=== PATIENT | female | born 1990 | race Caucasian/White ===

== ENCOUNTER → 2020-09-23 | Outpatient (CLI) | payer OTHER | LOC: LAB FS 14:40 | PROVIDERS: ATTEND Obstetrics & Gynecology | DX: N97.0 Female infertility associated with anovulation (principal) | CPT/HCPCS: 36415; 82670; 83002 ==

== ENCOUNTER → 2021-03-18 | Outpatient (CLI) | payer OTHER ==
--- NOTE | 2021-03-18 12:18 | Diagnostic Imaging Report ---
INDICATION: screening. TECHNIQUE: Multiple real-time grayscale images were obtained over the gravid uterus. COMPARISON: There are no prior studies available for comparison. FINDINGS: There is a single live fetus in breech presentation. heart motion was noted and a rate of 150 BPM was recorded. There were no abnormalities identified. However the lower spine could not be optimally visualized due to lie. The growth parameters are fairly uniform. The placenta is posterior fundal and there is no previa. The amniotic fluid volume is within normal limits. The cervix was identified and measures 3.4 cm in length. Biometrical measurements are as follows: Biparietal 4.44 cm, age 19 weeks 3 days. Head circumference 17.21 cm, age 19 weeks 6 days. Abdominal circumference 15.48 cm, age 20 weeks 5 days. Femur length 3.08 cm, age 19 weeks 4 days. Sonographic estimate age: 20 weeks 0 days. Sonographic estimated date of delivery: 08/05/2021. Estimated Weight: 331 gm (+/- 48 gm). LMP percentile: 75%. heart rate: 158 beats per minute. number: 1 of 1. IMPRESSION: 1. There is a single live fetus of approximately 20 weeks gestation +/- 1.5 weeks. The EDC is 08/05/2021. 2. There are no abnormalities identified. However the lower spine was not well visualized. If further evaluation is desired, then a short-term (4-6 week) follow-up exam should be obtained. 3. The growth parameters are fairly uniform. Dictated by: Dictated on workstation # [id number]
== END ==
LOC: RAD FS 07:53
PROVIDERS: ATTEND Obstetrics & Gynecology
DX: Z34.92 Encounter for supervision of normal pregnancy, unspecified, second trimester (principal); Z36.9 Encounter for antenatal screening, unspecified; Z3A.20 20 weeks gestation of pregnancy
CPT/HCPCS: 76805

== ENCOUNTER → 2021-04-22 | Outpatient (CLI) | payer OTHER ==
--- NOTE | 2021-04-22 15:48 | Diagnostic Imaging Report ---
INDICATION: Follow-up anatomy TECHNIQUE: Multiple real-time grayscale images were obtained over the gravid uterus. COMPARISON: 03/18/2021 FINDINGS: Garay IUP measures 24 weeks 4 days in transverse position. The placenta posterior fundal with no abruption or previa. heart rate 150 bpm. head to the maternal left. Anatomical survey is now completed with previous spinal evaluation now satisfactorily visualized. No pathological anatomical finding. Heart rate 150 bpm. IMPRESSION: Nondilated cervix 4 cm in length. spine appeared normal. Completing the previous otherwise unremarkable anatomical survey. No adverse development. Dictated by: Dictated on workstation # [id number]
== END ==
LOC: RAD FS 11:44
PROVIDERS: ATTEND Obstetrics & Gynecology
DX: Z34.92 Encounter for supervision of normal pregnancy, unspecified, second trimester (principal); Z3A.24 24 weeks gestation of pregnancy
CPT/HCPCS: 76816

== ENCOUNTER → 2021-07-19 | Outpatient (CLI) | payer OTHER | LOC: LABNPT 10:42 | PROVIDERS: ATTEND Obstetrics & Gynecology | DX: Z01.89 Encounter for other specified special examinations (principal) | CPT/HCPCS: 82570; 84156 ==

== ENCOUNTER 2021-07-20 09:30 | Inpatient (IN) | payer OTHER ==
[~2021-07-20] VITALS: Ht 152 cm; Wt 60.7 kg
[2021-07-20] VITALS (61 sets, daily range): BP systolic 119–150; BP diastolic 58–90
[2021-07-20] MEDS ORDERED: MINERAL OIL CONCENTRATE 99.9% 15 ML UDC TOP PRN (10:15)
[2021-07-20] MEDS ORDERED: LIDOCAINE/EPI 2% 1:200,00 (XYLOCAINE) 20 ML VIAL INJ PRN (10:15)
[2021-07-20] MEDS: D5 LR IV SOLUTION 1,000 ML IV SCH ×2 (10:47→18:05)
[2021-07-20 10:56] LABS: BASOPHILS % (AUTO) 0 % (0-10); EOSINOPHILS # (AUTO) 0.1 10^3/uL (0.0-0.3); EOSINOPHILS % (AUTO) 1 % (0-10); HEMATOCRIT 29 % (35-52); HEMOGLOBIN 9.6 g/dL (11.5-16.0); LYMPHOCYTES # (AUTO) 1.7 10^3/uL (1.0-4.0); LYMPHOCYTES % (AUTO) 17 % (12-44); MEAN CORPUSCULAR HEMOGLOBIN 33 pg (25-34); MEAN CORPUSCULAR HGB CONC 33 g/dL (32-36); MEAN CORPUSCULAR VOLUME 98 fL (80-99); MEAN PLATELET VOLUME 13.1 fL (9.0-12.2); MONOCYTES # (AUTO) 0.7 10^3/uL (0.0-1.0); MONOCYTES % (AUTO) 7 % (0-12); NEUTROPHILS # (AUTO) 7.4 10^3/uL (1.8-7.8); NEUTROPHILS % (AUTO) 74 % (42-75); PLATELET COUNT 151 10^3/uL (130-400)
--- NOTE | 2021-07-20 11:12 | History & Physical-OB ---
OB - Chief Complaint & HPI Date/Time Date of Admission: Date of Admission: Jul 20, 2021 at 09:31 Date seen by a Provider: Jul 20, 2021 Time Seen by a Provider: 10:30 Chief Complaint/History OB-Reason for Admission/Chief: Induction of Labor ( at 37 2/7 weeks with preeclampsia. Presents for induction of labor) Hx : 2 Hx Para: 0 Expected Date of Delivery: Aug 08, 2021 Gestational Age in Weeks: 37 Gestational Age in Days: 2 Indication for induction: medical complication (preeclampsia) Admission Nurse Assessment Rev: Yes History of Labs A+/- HBsAg - HIV - Hep C - Rub I VDRL NR GBS - PC ratio 0.75 LDH 255 Hgb 10.8 Laboratory Tests Test 07/20/21 10:35 Range/Units White Blood Count 10.0 4.3-11.0 10^3/uL Red Blood Count 2.94 L 3.80-5.11 10^6/uL Hemoglobin 9.6 L 11.5-16.0 g/dL Hematocrit 29 L 35-52 % Mean Corpuscular Volume 98 80-99 fL Mean Corpuscular Hemoglobin 33 25-34 pg Mean Corpuscular Hemoglobin Concent 33 32-36 g/dL Red Cell Distribution Width 13.0 10.0-14.5 % Platelet Count 151 130-400 10^3/uL Mean Platelet Volume 13.1 H 9.0-12.2 fL Immature Granulocyte % (Auto) 2 % Neutrophils (%) (Auto) 74 42-75 % Lymphocytes (%) (Auto) 17 12-44 % Monocytes (%) (Auto) 7 0-12 % Eosinophils (%) (Auto) 1 0-10 % Basophils (%) (Auto) 0 0-10 % Neutrophils # (Auto) 7.4 1.8-7.8 10^3/uL Lymphocytes # (Auto) 1.7 1.0-4.0 10^3/uL Monocytes # (Auto) 0.7 0.0-1.0 10^3/uL Eosinophils # (Auto) 0.1 0.0-0.3 10^3/uL Basophils # (Auto) 0.0 0.0-0.1 10^3/uL Immature Granulocyte # (Auto) 0.2 H 0.0-0.1 10^3/uL Allergies and Home Medications Allergies Coded Allergies: No Known Drug Allergies (Unverified , 07/20/21) Patient Home Medication List Home Medication List Reviewed: Yes OB - History Hx of Present Ultrasounds: Normal mid trimester US Obstetrical Complications: Pre-eclampsia Medical Complications: None Information Induced Hypertension: Yes Maternal Gestational Diabetes: No Hemorrhage: No Obstetrical History Hx : 2 Hx Para: 0 Hx # Term Pregnancies: 0 Hx # Pregnancies: 0 Number of Living Children: 0 Hx Termination: No Hx Total # of Abortions (Spona: 1 Hx Multiple Gestation: No Patient Past Medical History NC Social History/Family History Alcohol Use: Denies Use Recreational Drug Use: No Smoking Cessation: Former smoker Immunizations Tetanus Booster (TDap): Less than 5yrs (05/17/21) Rubella: immune RPR/VDRL: Negative GBS Status: Negative HBsAG: Negative OB - Admission Exam Physical Exam Vitals: 141/79 HEENT: NCAT Heart: Rhythm Normal Lungs: Clear Abdomen: Gravid Extremities: Edema (2+) Reflexes: Hyperreflexia Present Cervical Dilatation: 3cm Effacement: 75% Station: -2 Membranes: Intact Amniotic Fluid: Clear Heart Rate: 140's Accelerations: Accelerations Present Decelerations: No Decelerations Short Term Variability: Present Group Home Variability: Average (6-25) Contractions on Admission: >10 Minutes Apart Labs Laboratory Tests Test 07/20/21 10:35 Range/Units White Blood Count 10.0 4.3-11.0 10^3/uL Red Blood Count 2.94 L 3.80-5.11 10^6/uL Hemoglobin 9.6 L 11.5-16.0 g/dL Hematocrit 29 L 35-52 % Mean Corpuscular Volume 98 80-99 fL Mean Corpuscular Hemoglobin 33 25-34 pg Mean Corpuscular Hemoglobin Concent 33 32-36 g/dL Red Cell Distribution Width 13.0 10.0-14.5 % Platelet Count 151 130-400 10^3/uL Mean Platelet Volume 13.1 H 9.0-12.2 fL Immature Granulocyte % (Auto) 2 % Neutrophils (%) (Auto) 74 42-75 % Lymphocytes (%) (Auto) 17 12-44 % Monocytes (%) (Auto) 7 0-12 % Eosinophils (%) (Auto) 1 0-10 % Basophils (%) (Auto) 0 0-10 % Neutrophils # (Auto) 7.4 1.8-7.8 10^3/uL Lymphocytes # (Auto) 1.7 1.0-4.0 10^3/uL Monocytes # (Auto) 0.7 0.0-1.0 10^3/uL Eosinophils # (Auto) 0.1 0.0-0.3 10^3/uL Basophils # (Auto) 0.0 0.0-0.1 10^3/uL Immature Granulocyte # (Auto) 0.2 H 0.0-0.1 10^3/uL OB - Assessment/Plan/Diagnosis Assessment Assessment: induction of labor, other (preeclampsia without severe features) Admission Dx Plan admission for IOL AROM and augmentation as indicated Magnesium and antihypertensives as indicated Noreen DASH Admission Status: Inpatient Order (span 2 midnights) Reason for Inpatient Admission: inductin of labor Plan Plan: Induction Induction Method: AROM WILFRIDO MITCHELL DO Jul 20, 2021 11:12
[2021-07-20 11:14] LABS: ALBUMIN 2.7 GM/DL (3.2-4.5); BILIRUBIN,TOTAL 0.2 MG/DL (0.1-1.0); CALCIUM 8.3 MG/DL (8.5-10.1); CREATININE SERUM 0.72 MG/DL (0.60-1.30); POTASSIUM 3.6 MMOL/L (3.6-5.0); TOTAL PROTEIN 5.4 GM/DL (6.4-8.2)
[2021-07-20] MEDS ORDERED: OXYTOCIN PRE-MIX DRIP 500 ML IV SCH (11:15)
[2021-07-20] MEDS ORDERED: fentaNYL INJ 100 MCG/2 ML AMP IVP PRN (11:15)
[2021-07-20] MEDS: CATHETER FLUSH 10 ML SYR IV SCH (14:38)
[2021-07-20] MEDS ORDERED: fentaNYL INJ 100 MCG/2 ML AMP ONE ×2 (16:19→17:55)
[2021-07-20] MEDS: fentaNYL INJ 100 MCG/2 ML AMP IVP PRN ×2 (16:24→19:40)
[2021-07-20] MEDS ORDERED: fentaNYL 2 mcg/ml BUPIVA 0.125 100 ML ONE (17:23)
[2021-07-20] MEDS ORDERED: BUPIVACAINE 0.25% 30 ML (SENSORCAINE) VIAL ONE (17:55)
[2021-07-20] MEDS ORDERED: LACTATED RINGERS 1,000 ML IV ONE ×2 (18:00)
[2021-07-20] MEDS ORDERED: EPIDURAL (fentaNYL 2 MCG/ML BUPIVA 0.125%)100 ML BAG EPI PRN (18:00)
[2021-07-20] MEDS ORDERED: ONDANSETRON 4 MG/2 ML (SDV) Z0FRAN IV PRN (18:00)
[2021-07-20] MEDS ORDERED: NALOXONE 0.4 MG/ML 1 ML (NARCAN) VIAL IV PRN (18:00)
[2021-07-20] MEDS ORDERED: fentaNYL INJ 100 MCG/2 ML AMP INJ ONE (18:00)
[2021-07-20] MEDS ORDERED: LIDOCAINE/EPI 2% 1:200,00 (XYLOCAINE) 10 ML VIAL ONE (19:26)
[2021-07-20] MEDS ORDERED: diphenhydrAMINE 50 MG/ML INJ (BENADRYL) ONE (19:36)
[2021-07-20] MEDS ORDERED: diphenhydrAMINE 50 MG/ML INJ (BENADRYL) IM ONE (19:45)
[2021-07-21] VITALS (16 sets, daily range): BP systolic 117–154; BP diastolic 66–89
[2021-07-21] MEDS ORDERED: METOCLOPRAMIDE INJ 10 MG/2 ML (REGLAN) ONE (01:47)
[2021-07-21] MEDS ORDERED: CITRIC ACID/SOB CIT (BICITRA) 30 ML UDC ONE (01:47)
[2021-07-21] MEDS ORDERED: ceFAZolin 2 GM IV Premixed 50 ML ONE (01:48)
[2021-07-21] MEDS ORDERED: FAMOTIDINE 20MG/2ML IV (PEPCID) ONE (01:48)
[2021-07-21] MEDS ORDERED: NS (IVPB) 250 ML ONE (01:49)
[2021-07-21] MEDS ORDERED: AZITHROMYCIN INJECTION 500 MG/5 ML VIAL ONE (01:49)
--- NOTE | 2021-07-21 01:49 | Labor Progress Note ---
Labor Progress Note Labor Progress Note Date Seen by Provider: Jul 21, 2021 Time Seen by Provider: 02:40 Subjective: Karly has been pushing effectively for 2 hours. She has pushed with adequate contractions every 2-3 minutes in different positions. She has made some progre ss, but progress has halted. There is much caput noted. well being has been reassuring, but there has been a high baseline (160s) since admission with large accelerations. there has continued to be variability. However, at this point, there is no progress, no descent and patient is exhausted and asking for "this to be over". Objective: 07/20/21 07/20/21 07/20/21 07/20/21 14:00 14:15 14:30 14:45 Temp 37.3 Pulse 88 109 81 96 Resp 20 20 20 20 B/P (MAP) 130/75 (93) 121/75 (90) 146/64 (91) 136/80 (98) Pulse Ox 97 98 96 98 O2 Delivery Room Air Room Air Room Air Room Air 07/20/21 07/20/21 07/20/21 07/20/21 15:00 15:15 15:30 15:45 Pulse 86 90 86 95 Resp 20 20 20 20 B/P (MAP) 124/66 (85) 137/69 (91) 138/66 (90) 135/63 (87) Pulse Ox 96 97 96 97 O2 Delivery Room Air Room Air Room Air Room Air 07/20/21 07/20/21 07/20/21 07/20/21 16:00 16:15 16:30 16:45 Pulse 108 105 105 95 Resp 20 20 20 20 B/P (MAP) 137/74 (95) 139/73 (95) 148/73 (98) 145/70 (95) Pulse Ox 98 97 97 98 O2 Delivery Room Air Room Air Room Air Room Air 07/20/21 07/20/21 07/20/21 07/20/21 17:00 17:15 17:30 17:45 Temp 37.2 Pulse 100 104 108 113 Resp 20 20 20 20 B/P (MAP) 140/67 (91) 138/68 (91) 138/70 (92) 147/70 (95) Pulse Ox 98 97 97 O2 Delivery Room Air Room Air Room Air Room Air 1207/20/21 07/20/21 07/20/21 18:00 18:03 18:06 18:13 Pulse 105 130 121 111 Resp 20 20 20 20 B/P (MAP) 134/68 (90) 149/88 (108) 149/82 (104) 145/78 (100) Pulse Ox 82 94 95 97 O2 Delivery Room Air Room Air Room Air Room Air 07/20/21 07/20/21 07/20/21 07/20/21 18:20 18:23 18:26 18:40 Pulse 105 105 108 90 Resp 20 20 20 20 B/P (MAP) 148/77 (100) 150/74 (99) 147/77 (100) 140/74 (96) Pulse Ox 95 94 95 96 O2 Delivery Room Air Room Air Room Air Room Air 07/20/21 07/20/21 07/20/21 07/20/21 18:50 19:15 19:30 19:45 Temp 37.5 37.1 Pulse 101 102 103 111 Resp 20 20 20 20 B/P (MAP) 138/71 (93) 139/65 (89) 134/69 (90) 133/65 (87) Pulse Ox 96 97 97 98 O2 Delivery Room Air Room Air Room Air Room Air 07/20/21 07/20/21 07/20/21 07/20/21 20:00 20:15 20:30 20:45 Pulse 99 93 116 Resp 20 20 20 20 B/P (MAP) 137/65 (89) 139/90 (106) Pulse Ox 98 96 98 O2 Delivery Room Air Room Air Room Air 07/20/21 07/20/21 07/20/21 07/20/21 21:00 21:15 21:18 21:21 Pulse 113 111 102 Resp 20 20 20 20 B/P (MAP) 137/67 (90) 132/68 (89) 124/71 (88) Pulse Ox 95 97 97 07/20/21 07/20/21 07/20/21 07/20/21 21:24 21:27 21:30 21:35 Pulse 111 96 93 100 Resp 20 20 20 20 B/P (MAP) 122/68 (86) 129/67 (87) 125/64 (84) 125/62 (83) Pulse Ox 95 96 96 07/20/21 07/20/21 07/20/21 07/20/21 21:40 21:45 22:00 22:15 Pulse 98 99 98 112 Resp 20 20 20 B/P (MAP) 127/61 (83) 128/62 (84) 119/58 (78) 127/58 (81) Pulse Ox 95 97 94 94 07/20/21 07/20/21 07/20/21 07/20/21 22:30 22:45 23:00 23:15 Pulse 129 129 103 105 Resp 20 20 B/P (MAP) 132/62 (85) 132/62 (85) 136/71 (92) 136/66 (89) Pulse Ox 97 97 97 95 07/21/21 00:00 Intake Total 2000 ml Balance 2000 ml at this point, there is no further descent so will proceed with primary section due to deep arrest. risks of the procedure, including, infection, bleeding, injury to fetus, bowel, bladder, ureter and surrounding tissues has been explained to the patient. Proper consent has been obtained. Will give prophylactic antibiotics (Ancef and Azithromycin) and continue Tom hose and SCDs. Laboratory Tests Test 07/20/21 10:35 Range/Units White Blood Count 10.0 4.3-11.0 10^3/uL Red Blood Count 2.94 L 3.80-5.11 10^6/uL Hemoglobin 9.6 L 11.5-16.0 g/dL Hematocrit 29 L 35-52 % Mean Corpuscular Volume 98 80-99 fL Mean Corpuscular Hemoglobin 33 25-34 pg Mean Corpuscular Hemoglobin Concent 33 32-36 g/dL Red Cell Distribution Width 13.0 10.0-14.5 % Platelet Count 151 130-400 10^3/uL Mean Platelet Volume 13.1 H 9.0-12.2 fL Immature Granulocyte % (Auto) 2 % Neutrophils (%) (Auto) 74 42-75 % Lymphocytes (%) (Auto) 17 12-44 % Monocytes (%) (Auto) 7 0-12 % Eosinophils (%) (Auto) 1 0-10 % Basophils (%) (Auto) 0 0-10 % Neutrophils # (Auto) 7.4 1.8-7.8 10^3/uL Lymphocytes # (Auto) 1.7 1.0-4.0 10^3/uL Monocytes # (Auto) 0.7 0.0-1.0 10^3/uL Eosinophils # (Auto) 0.1 0.0-0.3 10^3/uL Basophils # (Auto) 0.0 0.0-0.1 10^3/uL Immature Granulocyte # (Auto) 0.2 H 0.0-0.1 10^3/uL Urine Protein 108 H 6-12 MG/DL Urine Creatinine 58 30-125 MG/DL Urine Protein/Creatinine Ratio 1.86 Sodium Level 139 135-145 MMOL/L Potassium Level 3.6 3.6-5.0 MMOL/L Chloride Level 111 H 98-107 MMOL/L Carbon Dioxide Level 19 L 21-32 MMOL/L Anion Gap 9 5-14 MMOL/L Blood Urea Nitrogen 11 7-18 MG/DL Creatinine 0.72 0.60-1.30 MG/DL Estimat Glomerular Filtration Rate 94 BUN/Creatinine Ratio 15 Glucose Level 110 H 70-105 MG/DL Calcium Level 8.3 L 8.5-10.1 MG/DL Corrected Calcium 9.3 8.5-10.1 MG/DL Total Bilirubin 0.2 0.1-1.0 MG/DL Aspartate Amino Transf (AST/SGOT) 22 5-34 U/L Alanine Aminotransferase (ALT/SGPT) 15 0-55 U/L Alkaline Phosphatase 128 40-136 U/L Lactate Dehydrogenase 233 H 125-220 U/L Total Protein 5.4 L 6.4-8.2 GM/DL Albumin 2.7 L 3.2-4.5 GM/DL Vitals - Labs Vital Signs - I&O Vital Signs Date Time Temp Pulse Resp B/P (MAP) Pulse Ox O2 Delivery O2 Flow Rate FiO2 07/20/21 23:15 105 20 136/66 (89) 95 07/20/21 23:00 103 20 136/71 (92) 97 07/20/21 22:45 129 20 132/62 (85) 97 07/20/21 22:30 129 20 132/62 (85) 97 07/20/21 22:15 112 20 127/58 (81) 94 07/20/21 22:00 98 20 119/58 (78) 94 07/20/21 21:45 99 20 128/62 (84) 97 07/20/21 21:40 98 20 127/61 (83) 95 07/20/21 21:35 100 20 125/62 (83) 96 07/20/21 21:30 93 20 125/64 (84) 96 07/20/21 21:27 96 20 129/67 (87) 07/20/21 21:24 111 20 122/68 (86) 95 07/20/21 21:21 102 20 124/71 (88) 97 07/20/21 21:18 111 20 132/68 (89) 97 07/20/21 21:15 113 20 137/67 (90) 95 07/20/21 21:00 20 07/20/21 20:45 20 07/20/21 20:30 116 20 98 Room Air 07/20/21 20:15 93 20 139/90 (106) 96 Room Air 07/20/21 20:00 99 20 137/65 (89) 98 Room Air 07/20/21 19:45 37.1 111 20 133/65 (87) 98 Room Air 07/20/21 19:30 103 20 134/69 (90) 97 Room Air 07/20/21 19:15 37.5 102 20 139/65 (89) 97 Room Air 07/20/21 18:50 101 20 138/71 (93) 96 Room Air 07/20/21 18:40 90 20 140/74 (96) 96 Room Air 07/20/21 18:26 108 20 147/77 (100) 95 Room Air 07/20/21 18:23 105 20 150/74 (99) 94 Room Air 07/20/21 18:20 105 20 148/77 (100) 95 Room Air 07/20/21 18:13 111 20 145/78 (100) 97 Room Air 07/20/21 18:06 121 20 149/82 (104) 95 Room Air 07/20/21 18:03 130 20 149/88 (108) 94 Room Air 07/20/21 18:00 105 20 134/68 (90) 82 Room Air 07/20/21 17:45 37.2 113 20 147/70 (95) Room Air 07/20/21 17:30 108 20 138/70 (92) 97 Room Air 07/20/21 17:15 104 20 138/68 (91) 97 Room Air 07/20/21 17:00 100 20 140/67 (91) 98 Room Air 07/20/21 16:45 95 20 145/70 (95) 98 Room Air 07/20/21 16:30 105 20 148/73 (98) 97 Room Air 07/20/21 16:15 105 20 139/73 (95) 97 Room Air 07/20/21 16:00 108 20 137/74 (95) 98 Room Air 07/20/21 15:45 95 20 135/63 (87) 97 Room Air 07/20/21 15:30 86 20 138/66 (90) 96 Room Air 07/20/21 15:15 90 20 137/69 (91) 97 Room Air 07/20/21 15:00 86 20 124/66 (85) 96 Room Air 07/20/21 14:45 96 20 136/80 (98) 98 Room Air 07/20/21 14:30 81 20 146/64 (91) 96 Room Air 07/20/21 14:15 37.3 109 20 121/75 (90) 98 Room Air 07/20/21 14:00 88 20 130/75 (93) 97 Room Air 07/20/21 13:45 86 20 136/80 (98) 97 Room Air 07/20/21 13:30 87 20 139/79 (99) 98 Room Air 07/20/21 13:15 87 20 131/70 (90) 97 Room Air 07/20/21 13:00 84 20 137/81 (99) 97 Room Air 07/20/21 12:45 90 20 136/81 (99) 96 Room Air 07/20/21 12:30 82 20 127/72 (90) 98 Room Air 07/20/21 12:15 83 20 125/73 (90) 97 Room Air 07/20/21 12:00 89 20 133/80 (97) 96 Room Air 07/20/21 11:45 92 20 127/71 (89) 96 Room Air 07/20/21 11:30 82 20 134/72 (92) 98 Room Air 07/20/21 11:15 85 20 143/77 (99) 97 Room Air 07/20/21 11:00 82 20 140/79 (99) 97 Room Air 07/20/21 10:45 90 20 141/85 (103) 97 Room Air 07/20/21 10:30 37.4 97 20 147/89 (108) 97 Room Air I & O 07/21/21 07:00 Intake Total 2000 ml Balance 2000 ml Labs Laboratory Tests 07/20/21 10:35: White Blood Count 10.0, Red Blood Count 2.94L, Hemoglobin 9.6L, Hematocrit 29L, Mean Corpuscular Volume 98, Mean Corpuscular Hemoglobin 33, Mean Corpuscular Hemoglobin Concent 33, Red Cell Distribution Width 13.0, Platelet Count 151, Mean Platelet Volume 13.1H, Immature Granulocyte % (Auto) 2, Neutrophils (%) (Auto) 74, Lymphocytes (%) (Auto) 17, Monocytes (%) (Auto) 7, Eosinophils (%) (Auto) 1, Basophils (%) (Auto) 0, Neutrophils # (Auto) 7.4, Lymphocytes # (Auto) 1.7, Monocytes # (Auto) 0.7, Eosinophils # (Auto) 0.1, Basophils # (Auto) 0.0, Immature Granulocyte # (Auto) 0.2H, Urine Protein 108H, Urine Creatinine 58, Urine Protein/Creatinine Ratio 1.86, Sodium Level 139, Potassium Level 3.6, Chloride Level 111H, Carbon Dioxide Level 19L, Anion Gap 9, Blood Urea Nitrogen 11, Creatinine 0.72, Estimat Glomerular Filtration Rate 94, BUN/Creatinine Ratio 15, Glucose Level 110H, Calcium Level 8.3L, Corrected Calcium 9.3, Total Bilirubin 0.2, Aspartate Amino Transf (AST/SGOT) 22, Alanine Aminotransferase (ALT/SGPT) 15, Alkaline Phosphatase 128, Lactate Dehydrogenase 233H, Total Protein 5.4L, Albumin 2.7L WILFRIDO MITCHELL DO Jul 21, 2021 01:49
[2021-07-21] MEDS ORDERED: AZITHROMYCIN INJECTION 500 MG in NS (IVPB) 250 ML IV ONE (02:00)
[2021-07-21] MEDS ORDERED: ceFAZolin 2 GM IV Premixed 50 ML IV ONE (02:00)
[2021-07-21] MEDS ORDERED: morphine INJ 4 MG/ML 1 ML (VIAL/SYRINGE) IV PRN (02:00)
[2021-07-21] MEDS ORDERED: NALOXONE 0.4 MG/ML 1 ML (NARCAN) VIAL IV PRN (02:00)
[2021-07-21] MEDS ORDERED: TETANUS,DIPTH,PERTUSS P/F (BOOSTRIX) 0.5 ML VIAL IM SCH (02:00)
[2021-07-21] MEDS ORDERED: ONDANSETRON 4 MG/2 ML (SDV) Z0FRAN IVP PRN (02:00)
[2021-07-21] MEDS ORDERED: MEASLES,MUMPS,RUBELLA 1 EA INJ SC SCH (02:00)
[2021-07-21] MEDS ORDERED: TERBUTALINE INJ 1 MG/ML (BRETHINE) AMP SC ONE (02:00)
[2021-07-21] MEDS ORDERED: OXYTOCIN PRE-MIX DRIP 500 ML IV SCH (02:00)
[2021-07-21] MEDS ORDERED: fentaNYL INJ 100 MCG/2 ML AMP ONE (02:04)
[2021-07-21] MEDS ORDERED: KETOROLAC 30 MG/ML VIAL ONE (02:57)
[2021-07-21] MEDS: KETOROLAC 30 MG/ML VIAL IV SCH ×3 (03:00→15:12)
[2021-07-21] MEDS ORDERED: OXYTOCIN PRE-MIX DRIP 500 ML IV ONE (03:16)
--- NOTE | 2021-07-21 03:28 | Cesarean Section Operative ---
Procedure Procedure Note Pre-operative Diagnosis: Karly Dubois is a 31 /Para 2 / 0,Gestational Age 37 3/7 weeks, deep pelvic arrest, preeclampsia Post-operative Diagnosis: same Procedure:Primary low transverse section Physician: WILFRIDO MITCHELL Estimated blood loss: 400 mL Disposition: stable Findings: Viable male infant, Apgars9/9, weight 7#4 ounces, intact placenta, 3vc, normal a ppearing uterus, tubes, and ovaries. Indications:Karly Dubois is a 31 /Para 2 / 0,Gestational Age 37 3/7 weeks, deep pelvic arrest, preeclampsia Procedure Details: The patient was seen in pre-op and the procedure was discussed with the patient in full, including the risks, benefits, and alternatives. All questions were answered. The patient was taken to the operating room and a time out was performed, verifying patient and procedure. After spinal anesthesia was placed by our anesthesia colleagues, the patient was placed in the dorsal supine with leftward tilt for uterine displacement.~ Her abdomen was then prepped and draped in the typical sterile fashion. A Pfannenstiel skin incision was made using a scalpel and carried down through the underlying fascia. The fascia was incised in the midline and tented up using Janessa clamps. On both the inferior and superior fascia side the rectus muscle was dissected off bluntly and sharply using Guerra scissors. The peritoneum was identified and entered bluntly in the midline. This was then stretched laterally using manual strength. After entering the abdominal cavity and confirming lack of intraperitoneal adhesions, a large Ismael retractor was placed and the lower uterine segment was visualized. A bladder flap was created with the use of Metzenbaum scissors.~ A scalpel was utilized to make a low transverse uterine incision. Amniotomy was performed with an Allis clamp with return of clear fluid. The infant's head was grasped and brought to the level of the incision. Fundal pressure was applied and infant was delivered without difficulty. Mouth and nares were suctioned with bulb suction. After the umbilical cord was clamped and cut, the was handed off to the pediatric staff. A sample of cord blood was then obtained. The placenta was delivered intact via uterine massage. The uterus was exteriorized and cleared of all clots and debris. The uterine incision was closed using 0 Vicryl in a running locked fashion. A second imbricated layer was placed using 0 Vicryl in a running fashion as well. The uterus was flexed forward and the posterior rectouterine space was inspected and cleared of all clots and debris. Again the hysterotomy site was examined and hemostasis was observed. The bilateral tubes and ovaries appeared normal. The uterus was placed back into the abdominal cavity and abdominal gutters were cleared of all clots and debris. A final check of the uterine incision showed it to be hemostatic. The peritoneum was closed using 3-0 Vicryl in a running fashion. The fascia was closed with 0 Vicryl in a running fashion. The subcutaneous space was hemosta tic, and irrigated. The subcutaneous space was closed with 3-0 Vicryl in several single interrupted stitches. The skin was then closed using 4-0 Monocryl in a running subcuticular fashion. The skin edges were reapproximated together and were hemostatic. A pressure dressing was applied. All sponge, lap and needle counts were correct at the end of the procedure per nursing. Vitals - Labs Vital Signs - I&O Vital Signs Date Time Temp Pulse Resp B/P (MAP) Pulse Ox O2 Delivery O2 Flow Rate FiO2 07/21/21 02:28 20 07/21/21 02:15 123 20 142/80 (100) 07/21/21 02:00 20 07/21/21 01:45 20 07/21/21 01:30 20 07/21/21 01:15 20 07/21/21 01:00 20 07/21/21 00:45 20 07/21/21 00:30 146 20 136/82 (100) 07/21/21 00:15 125 20 134/71 (92) 07/21/21 00:00 120 20 136/79 (98) 07/20/21 23:45 106 20 140/64 (89) 98 07/20/21 23:30 37.6 109 20 138/71 (93) 97 07/20/21 23:15 105 20 136/66 (89) 95 07/20/21 23:00 103 20 136/71 (92) 97 07/20/21 22:45 129 20 132/62 (85) 97 07/20/21 22:30 129 20 132/62 (85) 97 07/20/21 22:15 112 20 127/58 (81) 94 07/20/21 22:00 98 20 119/58 (78) 94 07/20/21 21:45 99 20 128/62 (84) 97 07/20/21 21:40 98 20 127/61 (83) 95 07/20/21 21:35 100 20 125/62 (83) 96 07/20/21 21:30 93 20 125/64 (84) 96 07/20/21 21:27 96 20 129/67 (87) 07/20/21 21:24 111 20 122/68 (86) 95 07/20/21 21:21 102 20 124/71 (88) 97 07/20/21 21:18 111 20 132/68 (89) 97 07/20/21 21:15 113 20 137/67 (90) 95 07/20/21 21:00 20 07/20/21 20:45 20 07/20/21 20:30 116 20 98 Room Air 07/20/21 20:15 93 20 139/90 (106) 96 Room Air 07/20/21 20:00 99 20 137/65 (89) 98 Room Air 07/20/21 19:45 37.1 111 20 133/65 (87) 98 Room Air 07/20/21 19:30 103 20 134/69 (90) 97 Room Air 07/20/21 19:15 37.5 102 20 139/65 (89) 97 Room Air 07/20/21 18:50 101 20 138/71 (93) 96 Room Air 07/20/21 18:40 90 20 140/74 (96) 96 Room Air 07/20/21 18:26 108 20 147/77 (100) 95 Room Air 07/20/21 18:23 105 20 150/74 (99) 94 Room Air 07/20/21 18:20 105 20 148/77 (100) 95 Room Air 07/20/21 18:13 111 20 145/78 (100) 97 Room Air 07/20/21 18:06 121 20 149/82 (104) 95 Room Air 07/20/21 18:03 130 20 149/88 (108) 94 Room Air 07/20/21 18:00 105 20 134/68 (90) 82 Room Air 07/20/21 17:45 37.2 113 20 147/70 (95) Room Air 07/20/21 17:30 108 20 138/70 (92) 97 Room Air 07/20/21 17:15 104 20 138/68 (91) 97 Room Air 07/20/21 17:00 100 20 140/67 (91) 98 Room Air 07/20/21 16:45 95 20 145/70 (95) 98 Room Air 07/20/21 16:30 105 20 148/73 (98) 97 Room Air 07/20/21 16:15 105 20 139/73 (95) 97 Room Air 07/20/21 16:00 108 20 137/74 (95) 98 Room Air 07/20/21 15:45 95 20 135/63 (87) 97 Room Air 07/20/21 15:30 86 20 138/66 (90) 96 Room Air 07/20/21 15:15 90 20 137/69 (91) 97 Room Air 07/20/21 15:00 86 20 124/66 (85) 96 Room Air 07/20/21 14:45 96 20 136/80 (98) 98 Room Air 07/20/21 14:30 81 20 146/64 (91) 96 Room Air 07/20/21 14:15 37.3 109 20 121/75 (90) 98 Room Air 07/20/21 14:00 88 20 130/75 (93) 97 Room Air 07/20/21 13:45 86 20 136/80 (98) 97 Room Air 07/20/21 13:30 87 20 139/79 (99) 98 Room Air 07/20/21 13:15 87 20 131/70 (90) 97 Room Air 07/20/21 13:00 84 20 137/81 (99) 97 Room Air 07/20/21 12:45 90 20 136/81 (99) 96 Room Air 07/20/21 12:30 82 20 127/72 (90) 98 Room Air 07/20/21 12:15 83 20 125/73 (90) 97 Room Air 07/20/21 12:00 89 20 133/80 (97) 96 Room Air 07/20/21 11:45 92 20 127/71 (89) 96 Room Air 07/20/21 11:30 82 20 134/72 (92) 98 Room Air 07/20/21 11:15 85 20 143/77 (99) 97 Room Air 07/20/21 11:00 82 20 140/79 (99) 97 Room Air 07/20/21 10:45 90 20 141/85 (103) 97 Room Air 07/20/21 10:30 37.4 97 20 147/89 (108) 97 Room Air I & O 07/21/21 07:00 Intake Total 2050 ml Balance 2050 ml Labs Laboratory Tests 07/20/21 10:35: White Blood Count 10.0, Red Blood Count 2.94L, Hemoglobin 9.6L, Hematocrit 29L, Mean Corpuscular Volume 98, Mean Corpuscular Hemoglobin 33, Mean Corpuscular Hemoglobin Concent 33, Red Cell Distribution Width 13.0, Platelet Count 151, Mean Platelet Volume 13.1H, Immature Granulocyte % (Auto) 2, Neutrophils (%) (Auto) 74, Lymphocytes (%) (Auto) 17, Monocytes (%) (Auto) 7, Eosinophils (%) (Auto) 1, Basophils (%) (Auto) 0, Neutrophils # (Auto) 7.4, Lymphocytes # (Auto) 1.7, Monocytes # (Auto) 0.7, Eosinophils # (Auto) 0.1, Basophils # (Auto) 0.0, Immature Granulocyte # (Auto) 0.2H, Urine Protein 108H, Urine Creatinine 58, Urine Protein/Creatinine Ratio 1.86, Sodium Level 139, Potassium Level 3.6, Chloride Level 111H, Carbon Dioxide Level 19L, Anion Gap 9, Blood Urea Nitrogen 11, Creatinine 0.72, Estimat Glomerular Filtration Rate 94, BUN/Creatinine Ratio 15, Glucose Level 110H, Calcium Level 8.3L, Corrected Calcium 9.3, Total Bilirubin 0.2, Aspartate Amino Transf (AST/SGOT) 22, Alanine Aminotransferase (ALT/SGPT) 15, Alkaline Phosphatase 128, Lactate Dehydrogenase 233H, Total Protein 5.4L, Albumin 2.7L WILFRIDO MITCHELL DO Jul 21, 2021 03:28
[2021-07-21] MEDS: CATHETER FLUSH 10 ML SYR IV SCH ×3 (08:36→22:00)
[2021-07-21] MEDS: DOCUSATE SODIUM 100 MG (COLACE) CAP PO SCH ×2 (08:37→21:34)
[2021-07-21] MEDS: ACETAMINOPHEN 500 MG TAB (TYLENOL) PO SCH ×2 (11:49→18:01)
[2021-07-21] MEDS ORDERED: IBUPROFEN 600 MG (MOTRIN) TAB PO ONE (21:25)
[2021-07-21] MEDS: IBUPROFEN 600 MG (MOTRIN) TAB PO SCH (21:35)
[2021-07-22] MEDS: KETOROLAC 30 MG/ML VIAL IV SCH (00:09)
[2021-07-22] MEDS: CATHETER FLUSH 10 ML SYR IV SCH (00:09)
[2021-07-22 01:00] VITALS: BP 157/80
[2021-07-22] MEDS: ACETAMINOPHEN 500 MG TAB (TYLENOL) PO SCH ×4 (02:01→21:37)
[2021-07-22 04:00] VITALS: BP 144/71
[2021-07-22] MEDS: IBUPROFEN 600 MG (MOTRIN) TAB PO SCH ×3 (04:24→18:27)
[2021-07-22] MEDS ORDERED: MILK OF MAGNESIA 400 MG/5 ML 30 ML UDC PO PRN (05:00)
[2021-07-22 06:36] LABS: BASOPHILS # (AUTO) 0.1 10^3/uL (0.0-0.1); BASOPHILS % (AUTO) 0 % (0-10); EOSINOPHILS # (AUTO) 0.1 10^3/uL (0.0-0.3); EOSINOPHILS % (AUTO) 1 % (0-10); HEMATOCRIT 25 % (35-52); HEMOGLOBIN 8.3 g/dL (11.5-16.0); LYMPHOCYTES # (AUTO) 2.1 10^3/uL (1.0-4.0); LYMPHOCYTES % (AUTO) 11 % (12-44); MEAN CORPUSCULAR HEMOGLOBIN 33 pg (25-34); MEAN CORPUSCULAR HGB CONC 34 g/dL (32-36); MEAN CORPUSCULAR VOLUME 99 fL (80-99); MEAN PLATELET VOLUME 12.9 fL (9.0-12.2); MONOCYTES # (AUTO) 1.2 10^3/uL (0.0-1.0); MONOCYTES % (AUTO) 7 % (0-12); NEUTROPHILS # (AUTO) 14.6 10^3/uL (1.8-7.8); NEUTROPHILS % (AUTO) 80 % (42-75); PLATELET COUNT 143 10^3/uL (130-400); WHITE BLOOD COUNT 18.2 10^3/uL (4.3-11.0)
[2021-07-22] MEDS: DOCUSATE SODIUM 100 MG (COLACE) CAP PO SCH ×2 (09:17→20:51)
--- NOTE | 2021-07-22 09:19 | Postpartum Progress Note ---
Note Note Day # 1 Subjective: Ambulating, voiding. Tolerating a regular diet without nausea or vomiting. Normal lochia. Pain is well controlled with oral pain medications. However, patient reports blurry vision OU. States it began in the right eye about 12 hours after the and within a couple of hours both eyes were affected and blurriness has persisted since with distance vision being the most affected. Objective: Physical Exam: General - Alert and oriented, no apparent distress Abdomen - Soft, appropriately tender to palpation, non-distended, fundus firm at umbilicus; incision c/d/i Extremities - no edema, negative Michael's bilaterally Assessment: Post- day # 1, status post PLTCS. Recovering well, hemodynamically stable Acute blood loss anemia Plan: Routine care. Encourage breast feeding. Encourage ambulation. Ferrous sulfate supplementation. Dr. Rubi notified of vision changes, will start Norvasc and consider ophthalmology consult Plan for discharge tomorrow Vitals - Labs Vital Signs - I&O Vital Signs Date Time Temp Pulse Resp B/P (MAP) Pulse Ox O2 Delivery O2 Flow Rate FiO2 07/22/21 04:00 36.4 106 18 144/71 (95) 96 Room Air 07/22/21 01:00 36.3 105 20 157/80 (105) 95 Room Air 07/21/21 21:00 36.7 98 20 137/89 (105) 97 Room Air 07/21/21 15:14 139/87 (104) 07/21/21 15:06 36.8 108 20 142/85 (104) 97 Room Air 07/21/21 11:50 36.6 110 16 136/79 (98) 98 Room Air I & O 07/22/21 07:00 Intake Total 1750 ml Output Total 1095 ml Balance 655 ml Labs Laboratory Tests 07/22/21 05:18: White Blood Count 18.2H, Red Blood Count 2.50L, Hemoglobin 8.3L, Hematocrit 25L, Mean Corpuscular Volume 99, Mean Corpuscular Hemoglobin 33, Mean Corpuscular Hemoglobin Concent 34, Red Cell Distribution Width 13.7, Platelet Count 143, Mean Platelet Volume 12.9H, Immature Granulocyte % (Auto) 1, Neutrophils (%) (Auto) 80H, Lymphocytes (%) (Auto) 11L, Monocytes (%) (Auto) 7, Eosinophils (%) (Auto) 1, Basophils (%) (Auto) 0, Neutrophils # (Auto) 14.6H, Lymphocytes # (Auto) 2.1, Monocytes # (Auto) 1.2H, Eosinophils # (Auto) 0.1, Basophils # (Auto) 0.1, Immature Granulocyte # (Auto) 0.2H YOBANI ALANIS APRN Jul 22, 2021 09:19
[2021-07-22 09:21] VITALS: BP 151/90
[2021-07-22] MEDS ORDERED: FUROSEMIDE 20 MG (LASIX) TAB PO NR (10:21)
[2021-07-22] MEDS ORDERED: amLODIPine 5 MG (NORVASC) TAB PO NR (10:21)
[2021-07-22 10:37] LABS: ALBUMIN 2.3 GM/DL (3.2-4.5); BILIRUBIN,TOTAL 0.2 MG/DL (0.1-1.0); CALCIUM 7.9 MG/DL (8.5-10.1); CREATININE SERUM 0.79 MG/DL (0.60-1.30); TOTAL PROTEIN 4.7 GM/DL (6.4-8.2)
[2021-07-22 11:52] VITALS: BP 144/70
--- NOTE | 2021-07-22 15:01 | Anesthesia-Regional Post-Op ---
Regional Patient Condition Mental Status: Alert, Oriented x3 Circulation: Same as Pre-Op Headache: Absent Sensation: Full Recovery Motor Block: Absent Post Op Complications Complications None Follow Up Care/Instructions Patient Instructions None needed. Anesthesia/Patient Condition Patient is doing well, no complaints, stable vital signs, no apparent adverse anesthesia problems. No complications reported per nursing. VANDANA DENNY CRNA Jul 22, 2021 15:01
[2021-07-22 16:13] VITALS: BP 141/74
[2021-07-22 20:36] VITALS: BP 142/88
[2021-07-23 00:08] VITALS: BP 136/77
[2021-07-23] MEDS: IBUPROFEN 600 MG (MOTRIN) TAB PO SCH ×3 (00:10→13:07)
[2021-07-23 03:54] VITALS: BP 140/91
[2021-07-23] MEDS: ACETAMINOPHEN 500 MG TAB (TYLENOL) PO SCH (05:55)
[2021-07-23] MEDS: CATHETER FLUSH 10 ML SYR IV SCH ×2 (05:56→08:39)
[2021-07-23 08:37] VITALS: BP 133/84
[2021-07-23] MEDS: DOCUSATE SODIUM 100 MG (COLACE) CAP PO SCH (08:39)
[2021-07-23] MEDS ORDERED: amLODIPine 5 MG (NORVASC) TAB PO SCH (09:00)
--- NOTE | 2021-07-23 09:01 | Postpartum Progress Note ---
Post Op Post-operative Day #2 s/p PLTCS Had visual changes in left eye afternoon of CS. This was described as blurred vision in the right optic field of the right eye, "kind of like a gold ball". Never had headache, abdominal pain, neck pain, fever. Later that evening she had blurriness in both eyes. Blood pressures wwere not treatment level (14 0s/70s). However, yesterday BP 150s/90s and still with blurred vision. Norvasc started and lasix x 1 given due to increased LE edema. Consulted Dr. Baron by phone and he suggested that the initial blurred vision was due to an opthalmologic migraine and this does not usually cause headache. May have been precipitated by lack of sleep, stress, dehydration. Also states that there can be visual acuity problems following anesthesia that last 48-72 hours (accommodation) that will spontaneously resolve. She has no headache and blood pressures are improved. Did have some mild hypoglycemia and this has improved as well. Recommended that she be seen in his office at discharge. diurisis is improving. Subjective: Patient is without complaints. Ambulating, voiding after pace removed. Tolerating a regular diet without nausea or vomiting. Normal lochia. Pain is w ell controlled with oral pain medications. Passing flatus. breast feeding Objective: Intake and Output 07/23/21 00:00 Intake Total 2600 ml Output Total 3175 ml Balance -575 ml Intake Oral 2600 ml Output Urine Total 3175 ml 07/23/21 07/23/21 07/23/21 00:08 03:54 08:37 Temp 36.9 36.7 36.4 Pulse 98 90 97 Resp 18 18 16 B/P (MAP) 136/77 (96) 140/91 (107) 133/84 (100) Pulse Ox 95 97 96 O2 Delivery Room Air Room Air Room Air 07/23/21 00:00 Intake Total 1800 ml Output Total 1875 ml Balance -75 ml Physical Exam: General - Alert and oriented, no apparent distress Abdomen - Soft, appropriately tender to palpation, non-distended, fundus firm at umbilicus Incision - clean, dry and intact; no erythema or induration, no drainage Extremities - no edema, negative Michael's bilaterally Assessment: 1 post-operative day # 2, status post PLTCS. Recovering well, hemodynamically stable 2. preeclampsia - on Norvasc for increased labile blood pressures. 3. 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 Encourage breast feeding. Encourage ambulation. VTE prophylaxis: SCDs. Ferrous sulfate supplementation. Plan for discharge possibly today or tomorrow Vitals - Labs Vital Signs - I&O Vital Signs Date Time Temp Pulse Resp B/P (MAP) Pulse Ox O2 Delivery O2 Flow Rate FiO2 07/23/21 08:37 36.4 97 16 133/84 (100) 96 Room Air 07/23/21 03:54 36.7 90 18 140/91 (107) 97 Room Air 07/23/21 00:08 36.9 98 18 136/77 (96) 95 Room Air 07/22/21 20:36 36.6 110 20 142/88 (106) 96 Room Air 07/22/21 16:13 36.7 104 20 141/74 (96) 96 Room Air 07/22/21 11:52 36.5 104 22 144/70 (94) 96 Room Air 07/22/21 09:24 96 Room Air 07/22/21 09:21 36.5 86 20 151/90 (110) 96 Room Air I & O 07/23/21 07:00 Intake Total 2000 ml Output Total 2925 ml Balance -925 ml WILFRIDO MITCHELL DO Jul 23, 2021 09:01
--- NOTE | 2021-07-23 09:05 | Discharge Inst-Women's Service ---
Discharge Inst-Women's Serv Consults/Follow Up Additional Follow Up: Yes (1 week with Jenna for incision and BP check, 6 week pp exam, early next week with Jaki (he is expecting the appointment; let office know that he has approved the appointment for early next week)) Activity Activity: Activity as Tolerated Driving Instructions: No Driving for 1 Week NO SMOKING: NO SMOKING Nothing Inside Vagina: No Douching, No [place], No Tampons Diet Discharge Diet: No Restrictions Symptoms to Report to : Bleeding Excessive, Pain Increased, Fever Over 101 Degrees F, Vaginal Bleeding Increase, Cramps in Feet or Legs, Vaginal Discharge Foul For Any Problems or Questions: Contact Your Physician Skin/Wound Care Infection Signs and Symptoms: Increased Redness, Foul Odor of Wound, Increased Drainage, Skin Itchy or Has a Rash, Increased Swelling, Temperature Above 101 F Stitches/[place]/Dermabond: Dermabond Bathing Instructions: WILFRIDO Ingram DO Jul 23, 2021 09:05
[2021-07-23] MEDS ORDERED: FERR-84 PO (09:12)
[2021-07-23] MEDS ORDERED: DOCU100C37 PO (09:12)
[2021-07-23] MEDS ORDERED: OXC5T PO (09:12)
[2021-07-23] MEDS ORDERED: AMLO-250 PO (09:12)
[2021-07-23] MEDS ORDERED: ACET-93 PO (09:12)
[2021-07-23] MEDS ORDERED: IBUP-844 PO (09:12)
[2021-07-23] MEDS ORDERED: FERROUS SULF 325 MG (IRON) TAB PO SCH (09:15)
[2021-07-23] MEDS ORDERED: IRON SUCROSE 200 MG/10 ML (VENOFER) VIAL IV NR (09:17)
[2021-07-23] MEDS ORDERED: FUROSEMIDE 20 MG (LASIX) TAB PO ONE (09:30)
== END 2021-07-23 13:44 | disposition home or self-care (01) | DRG 787 ==
LOC: WSo 09:30 → LDRP 09:31
PROVIDERS: ADMIT Obstetrics & Gynecology; ATTEND Obstetrics & Gynecology
PROC: 10D00Z1 Extraction of Products of Conception, Low, Open Approach (ICD-10-PCS; principal; 2021-07-21 02:32)
DX: O14.04 Mild to moderate pre-eclampsia, complicating childbirth (principal); D62 Acute posthemorrhagic anemia; O99.355 Diseases of the nervous system complicating the puerperium; Z3A.37 37 weeks gestation of pregnancy; Z37.0 Single live birth; Z87.891 Personal history of nicotine dependence; O64.0XX0 Obstructed labor due to incomplete rotation of fetal head, not applicable or unspecified; O90.81 Anemia of the puerperium; G43.B0 Ophthalmoplegic migraine, not intractable
CPT/HCPCS: 36415; 80053; 82570; 83615; 84156; 85025; 86850; 86900; 86901

== ENCOUNTER 2022-07-31 00:17 | Emergency (ER) | payer OTHER ==
[~2022-07-31] VITALS: Ht 152.4 cm; Wt 62.0 kg
[~2022-07-31 00:17] MED LIST: ACET-93 PO; AMLO-250 PO; DOCU100C37 PO; FERR-84 PO; IBUP-844 PO; OXC5T PO
[2022-07-31 00:34] LABS: BASOPHILS % (AUTO) 0 % (0-10); EOSINOPHILS # (AUTO) 0.1 10^3/uL (0.0-0.3); EOSINOPHILS % (AUTO) 1 % (0-10); HEMATOCRIT 34 % (35-52); HEMOGLOBIN 11.3 g/dL (11.5-16.0); LYMPHOCYTES # (AUTO) 2.6 X 10^3 (1.0-4.0); LYMPHOCYTES % (AUTO) 27 % (12-44); MEAN CORPUSCULAR HEMOGLOBIN 32 pg (25-34); MEAN CORPUSCULAR HGB CONC 34 g/dL (32-36); MEAN CORPUSCULAR VOLUME 96 fL (80-99); MEAN PLATELET VOLUME 10.9 fL (9.0-12.2); MONOCYTES # (AUTO) 0.6 X 10^3 (0.0-1.0); MONOCYTES % (AUTO) 6 % (0-12); NEUTROPHILS # (AUTO) 6.2 X 10^3 (1.8-7.8); NEUTROPHILS % (AUTO) 65 % (42-75); PLATELET COUNT 277 10^3/uL (130-400); WHITE BLOOD COUNT 9.5 10^3/uL (4.3-11.0)
[2022-07-31 01:04] LABS: POTASSIUM 3.8 MMOL/L (3.6-5.0)
[2022-07-31 01:05] LABS: CALCIUM 8.8 MG/DL (8.5-10.1); CREATININE SERUM 0.53 MG/DL (0.60-1.30)
--- NOTE | 2022-07-31 01:32 | ED Abdominal Pain ---
General Chief Complaint: OB < 20 WEEKS Stated Complaint: MISCARRIAGE - VAGINAL BLEEDING - WEAK Nursing Triage Note: Patient states that she is 7 weeks . Patient reports that she began bleeding 07/30/22 at 0300. Patient reports that she has filled more than 1 pad an hour since that time. Patient states she began feeling lightheaded and called the nurse line. Nurse line advised her to go be evaluated in the ER. Source of Information: Patient Exam Limitations: No Limitations History of Present Illness Date Seen by Provider: Jul 31, 2022 Time Seen by Provider: 00:30 Initial Comments Patient is a 32-year-old G2, P1, estimated 7-week gestation female presents with heavy vaginal bleeding with clots starting several hours prior to arrival. Patient saturating 3 tampons per pads per hour. She reports lower pelvic pain/cramping. She has not had a ultrasound to confirm IUP for current and has not yet established with local OB. Denies dizziness lightheadedness chest pain palpitation shortness of breath. No other acute symptoms or complaints. Timing/Duration: Other Severity/Quality: Other Location: Other Radiation: Other Activities at Onset: Other Modifying Factors: Improves With Other Associated Symptoms: Other Allergies and Home Medications Allergies Coded Allergies: No Known Drug Allergies (Unverified , 07/20/21) Patient Home Medication List Home Medication List Reviewed: Yes Acetaminophen (Acetaminophen) 500 Mg Tablet, 1,000 MG PO Q8HR Prescribed by: WILFRIDO MITCHELL on 07/23/21911 Amlodipine Besylate (Amlodipine Besylate) 5 Mg Tablet, 5 MG PO DAILY Prescribed by: WILFRIDO MITCHELL on 07/23/21911 Docusate Sodium (Docusate Sodium) 100 Mg Capsule, 100 MG PO BID Prescribed by: WILFRIDO MITCHELL on 07/23/21911 Ferrous Sulfate (Iron) 325 Mg Tablet, 325 MG PO DAILY Prescribed by: WILFRIDO MITCHELL on 07/23/21911 Ibuprofen (Ibu) 600 Mg Tablet, 600 MG PO Q6HR Prescribed by: WILFRIDO MITCHELL on 07/23/21911 Oxycodone Hcl (Oxyir Tablet) 5 Mg Tab, 5 MG PO Q4HR PRN for PAIN-SEE DOSE INSTRUCTIONS Prescribed by: WILFRIDO MITCHELL on 07/23/21911 Review of Systems Review of Systems Constitutional: see HPI EENTM: See HPI Respiratory: See HPI Cardiovascular: See HPI Gastrointestinal: See HPI Genitourinary: See HPI Musculoskeletal: see HPI Skin: see HPI Psychiatric/Neurological: See HPI Endocrine: See HPI Hematologic/Lymphatic: See HPI All Other Systems Reviewed Negative Unless Noted: No Past Zffktkj-Ksfukz-Aacnts Hx Patient Social History Tobacco Use?: No Substance use?: No Alcohol Use?: No Pt feels they are or have been: No Immunizations Up To Date Tetanus Booster (TDap): Less than 5yrs Physical Exam Vital Signs Vital Signs - First Documented 07/31/22 00:19 Temp 37.0 Pulse 140 Resp 16 B/P (MAP) 133/73 (93) Pulse Ox 99 O2 Delivery Room Air Capillary Refill : Less Than 3 Seconds Height/Weight/BMI Height: '" Weight: lbs. oz. kg; 26.00 BMI Method: General Appearance: WD/WN, no apparent distress HEENT: PERRL/EOMI Respiratory: lungs clear Cardiovascular: regular rate, rhythm Genital/Rectal: other Pelvic: vaginal bleeding (brisk dark red vaginal bleeding with gushing and clots on speculum exam. Cervix open, no POC) Focused Exam Sepsis Stage: Ruled Out Progress/Results/Core Measures Results/Orders Lab Results Laboratory Tests Test 07/31/22 00:23 Range/Units White Blood Count 9.5 4.3-11.0 10^3/uL Red Blood Count 3.52 L 3.80-5.11 10^6/uL Hemoglobin 11.3 L 11.5-16.0 g/dL Hematocrit 34 L 35-52 % Mean Corpuscular Volume 96 80-99 fL Mean Corpuscular Hemoglobin 32 25-34 pg Mean Corpuscular Hemoglobin Concent 34 32-36 g/dL Red Cell Distribution Width 11.9 10.0-14.5 % Platelet Count 277 130-400 10^3/uL Mean Platelet Volume 10.9 9.0-12.2 fL Neutrophils (%) (Auto) 65 42-75 % Lymphocytes (%) (Auto) 27 12-44 % Monocytes (%) (Auto) 6 0-12 % Eosinophils (%) (Auto) 1 0-10 % Basophils (%) (Auto) 0 0-10 % Neutrophils # (Auto) 6.2 1.8-7.8 X 10^3 Lymphocytes # (Auto) 2.6 1.0-4.0 X 10^3 Monocytes # (Auto) 0.6 0.0-1.0 X 10^3 Eosinophils # (Auto) 0.1 0.0-0.3 10^3/uL Basophils # (Auto) 0.0 0.0-0.1 10^3/uL Sodium Level 138 135-145 MMOL/L Potassium Level 3.8 3.6-5.0 MMOL/L Chloride Level 106 98-107 MMOL/L Carbon Dioxide Level 21 21-32 MMOL/L Anion Gap 11 5-14 MMOL/L Blood Urea Nitrogen 16 7-18 MG/DL Creatinine 0.53 L 0.60-1.30 MG/DL Estimat Glomerular Filtration Rate 126 BUN/Creatinine Ratio 30 Glucose Level 143 H 70-105 MG/DL Calcium Level 8.8 8.5-10.1 MG/DL Human Chorionic Gonadotropin, Quant 05458 H <5 MIU/ML My Orders Orders - MEGAN HERNANDEZ DO Cbc With Automated Diff (07/31/22 00:26) Urine Bedside (07/31/22 00:26) Abo Rh Type (07/31/22 00:26) Hcg,Quantitative (07/31/22 00:26) Basic Metabolic Panel (07/31/22 00:26) Vital Signs/I&O 07/31/22 00:19 Temp 37.0 Pulse 140 Resp 16 B/P (MAP) 133/73 (93) Pulse Ox 99 O2 Delivery Room Air Blood Pressure Mean: 93 Departure Communication (Admissions) Patient exam concerning for possible ectopic . Vital signs and H&H stable. Patient to be transferred to [facility] for OB ultrasound. Dr. Briceno assumes care of patient. Impression Primary Impression: Vaginal bleeding in Disposition: XFER SHT-TRM HOSP Condition: Stable Departure-Patient Inst. Referrals: NO,LOCAL PHYSICIAN (PCP/Family) Primary Care Physician MEGAN HERNANDEZ DO Jul 31, 2022 01:32
[2022-07-31] MEDS ORDERED: ONDANSETRON 4 MG/2 ML (SDV) Z0FRAN IVP ONE (01:45)
--- NOTE | 2022-07-31 03:43 | ED GU-Female ---
General Chief Complaint: OB < 20 WEEKS Stated Complaint: MISCARRIAGE - VAGINAL BLEEDING - WEAK Nursing Triage Note: Patient states that she is 7 weeks . Patient reports that she began bleeding 07/30/22 at 0300. Patient reports that she has filled more than 1 pad an hour since that time. Patient states she began feeling lightheaded and called the nurse line. Nurse line advised her to go be evaluated in the ER. Source: patient History of Present Illness Date Seen by Provider: Jul 31, 2022 Time Seen by Provider: 03:32 Initial Comments PT ARRIVES VIA [facility] FROM [place] [facility] PT IS BEING TRANSFERRED HERE FOR AN ULTRASOUND TO RULE OUT ECTOPIC. PT STATES IS IS 7 WEEKS AND BEGAN HAVING HEAVY BLEEDING AT 0300 ON 07/30/22 SHE HAS BEEN SOAKING AT LEAST 1 PAD AN HOUR--HAS GONE THROUGH OVER 20 PADS SHE STATES SHE THINKS SHE PASSED TISSUE LAST NIGHT SHE IS STARTING TO FEEL LIGHTHEADED AND NAUSEATED NO PAIN OR CRAMPING PT IS AB1--HAD AT 37 WEEKS FOR PRE-ECLAMPSIA IN JULY OF 2021. NOT . NO MEDICAL PROBLEMS PCP: DR. VELÁSQUEZ, [place] Allergies and Home Medications Allergies Coded Allergies: No Known Drug Allergies (Unverified , 07/20/21) Patient Home Medication List Acetaminophen (Acetaminophen) 500 Mg Tablet, 1,000 MG PO Q8HR Prescribed by: WILFRIDO MITCHELL on 07/23/21911 Amlodipine Besylate (Amlodipine Besylate) 5 Mg Tablet, 5 MG PO DAILY Prescribed by: WILFRIDO MITCHELL on 07/23/21911 Docusate Sodium (Docusate Sodium) 100 Mg Capsule, 100 MG PO BID Prescribed by: WILFRIDO MITCHELL on 07/23/21911 Ferrous Sulfate (Iron) 325 Mg Tablet, 325 MG PO DAILY Prescribed by: WILFRIDO MITCHELL on 07/23/21911 Hydrocodone/Acetaminophen (Hydrocodone-Acetamin 5-325 mg) 5 Mg-325 Mg Tablet, 1 EACH PO Q4-6 HOURS PRN for PAIN Prescribed by: KELLY SPENCE on 07/31/22 0701 Ibuprofen (Ibu) 600 Mg Tablet, 600 MG PO Q6HR Prescribed by: WILFRIDO MITCHELL on 07/23/21911 Ondansetron (Ondansetron Odt) 4 Mg Tab.rapdis, 4 MG PO Q4H Prescribed by: KELLY SPENCE on 07/31/22 0701 Oxycodone Hcl (Oxyir Tablet) 5 Mg Tab, 5 MG PO Q4HR PRN for PAIN-SEE DOSE INSTRUCTIONS Prescribed by: WILFRIDO MITCHELL on 07/23/21 0912 Review of Systems Review of Systems Constitutional: see HPI, dizziness Respiratory: no symptoms reported Cardiovascular: no symptoms reported Gastrointestinal: No abdominal pain; nausea; No vomiting Genitourinary: no symptoms reported : Yes Musculoskeletal: no symptoms reported Skin: no symptoms reported Psychiatric/Neurological: No Symptoms Reported Endocrine: No Symptoms Reported Hematologic/Lymphatic: No Symptoms Reported Past Yqyalkp-Djecgn-Qsfxdx Hx Patient Social History Tobacco Use?: No Substance use?: No Alcohol Use?: No Pt feels they are or have been: No Immunizations Up To Date Tetanus Booster (TDap): Less than 5yrs Past Medical History Surgeries: Yes () Section Respiratory: No Cardiac: No Neurological: No : Yes Reproductive Disorders: No Genitourinary: No Gastrointestinal: No Musculoskeletal: No Endocrine: No HEENT: No Cancer: No Psychosocial: No Integumentary: No Blood Disorders: No Physical Exam Vital Signs Vital Signs - First Documented 07/31/22 00:19 Temp 37.0 Pulse 140 Resp 16 B/P (MAP) 133/73 (93) Pulse Ox 99 O2 Delivery Room Air Capillary Refill : Less Than 3 Seconds Height, Weight, BMI Height: '" Weight: lbs. oz. kg; 26.00 BMI Method: General Appearance: WD/WN, no apparent distress Progress/Results/Core Measures Suspected Sepsis SIRS Temperature: Pulse: 78 Respiratory Rate: 16 Blood Pressure 107 /52 Mean: 70 Results/Orders Lab Results My Orders Medications Given in ED Vital Signs/I&O Capillary Refill : Less Than 3 Seconds Blood Pressure Mean: 70 Progress Note : Progress Note GIVEN IV FLUIDS ORTHOSTATICS REVIEWED PREVIOUS RECORD FROM DELIVERY IN JULY OF 2021, INCLUDING H&P, DELIVERY NOTE AND DISCHARGE SUMMARY Departure Impression Primary Impression: INCOMPLETE MISCARRIAGE IN FIRST TRIMESTER Disposition: 01 HOME, SELF-CARE Condition: Stable Departure-Patient Inst. Decision time for Depature: 06:58 Referrals: OLLIE VELÁSQUEZ MD NO,LOCAL PHYSICIAN (PCP) Primary Care Physician Patient Instructions: Miscarriage (DC) Add. Discharge Instructions: TAKE YOUR VITAMINS DAILY LOTS OF CLEAR LIQUIDS RETURN TO ER IF YOU CONTINUE TO SOAK MORE THAN 1 MAXI PAD AN HOUR FOLLOW UP WITH DR. VELÁSQUEZ ON MONDAY FOR FURTHER CARE--CALL FIRST THING ON MONDAY MORNING TO MAKE AN APPOINTMENT All discharge instructions reviewed with patient and/or family. Voiced understanding. Scripts Hydrocodone/Acetaminophen (Hydrocodone-Acetamin 5-325 mg) 5 Mg-325 Mg Tablet 1 EACH PO Q4-6 HOURS PRN for PAIN, #20 TAB Prov: KELLY SPENCE DO 07/31/22 Ondansetron (Ondansetron Odt) 4 Mg Tab.rapdis 4 MG PO Q4H for Nausea/Vomiting, #10 TAB Prov: KELLY SPENCE DO 07/31/22 KELLY SPENCE DO Jul 31, 2022 03:43
[2022-07-31] MEDS ORDERED: NS IV 1000 ML 1,000 ML IV SCH (03:45)
[2022-07-31 04:04] VITALS: BP_SYST 102; BP_SYST 118; BP_SYST 126; BP_DIAS 57; BP_DIAS 63; BP_DIAS 68
[2022-07-31 06:29] LABS: HEMATOCRIT 28 % (35-52); HEMOGLOBIN 9.4 g/dL (11.5-16.0); MEAN CORPUSCULAR HEMOGLOBIN 32 pg (25-34); MEAN CORPUSCULAR HGB CONC 34 g/dL (32-36); MEAN CORPUSCULAR VOLUME 95 fL (80-99); MEAN PLATELET VOLUME 11.1 fL (9.0-12.2); PLATELET COUNT 223 10^3/uL (130-400); WHITE BLOOD COUNT 9.3 10^3/uL (4.3-11.0)
[2022-07-31] MEDS ORDERED: ACHD5005 PO (07:01)
[2022-07-31] MEDS ORDERED: ONDA4TAB11 PO (07:01)
--- NOTE | 2022-07-31 07:18 | Diagnostic Imaging Report ---
INDICATION: Vaginal bleeding and pelvic cramping, rule out ectopic . COMPARISON: None. DISCUSSION: Transabdominal and transvaginal sonographic evaluation of the pelvis was performed. Uterus is normal in echotexture and size measuring 7.5 x 4.8 x 6.2 cm. Endometrium is not overtly thickened. Near the lower uterine segment there is a complex area measuring 2 x 1.3 x 1.7 cm which is nonspecific though potentially related to products of conception and possibly an evolving spontaneous . Otherwise there is no definite intrauterine identified. Follicular activity is noted within the ovaries. Normal color Doppler blood flow is present within the ovaries. There is an abnormal heterogenous solid-appearing focus within the right ovary which may represent a collapsing hemorrhagic follicle though is indeterminate. There is no definite ectopic identified. Trace amount of free fluid is noted which appears simple. IMPRESSION: 1. Heterogenous complex area within the lower uterine segment is nonspecific though could represent an evolving spontaneous . 2. Otherwise there is no definite evidence for an intrauterine or ectopic at this time. 3. Complex solid appearing nodule within the right ovary is indeterminate though could represent an evolving hemorrhagic follicle though recommend short-term followup to document stability or resolution. This would be an very atypical appearance of an ectopic . Dictated by: Dictated on workstation # [id number]
[2022-07-31 07:45] VITALS: BP 104/68
== END 2022-07-31 07:45 | disposition home or self-care (01) ==
LOC: EDUNIT# 00:17 → ER FS 00:19 → ER 07:45
DX: O03.4 Incomplete spontaneous abortion without complication (principal); Z28.310 Unvaccinated for COVID-19
CPT/HCPCS: 36415; 76801; 76817; 80048; 84702; 85025; 85027; 93041